=== PATIENT | female | born 1945 | race Caucasian/White ===

== ENCOUNTER → 2016-08-05 | Outpatient (CLI) | payer MEDICARE, OTHER ==
[~2016-08-05] MED LIST: ASPI1TAB69 PO; ASPI81 PO; DIGO0.12 PO; DIGO0.25 PO; HYDR-3533 PO; HYZA100T2 PO; LANO0.1212 PO; LEVO.05 PO; LORTA5 PO; LOSA50TA2 PO; MELO-1 PO; MELO15TA2 PO; MULT-135 PO; OXYC1TAB63 PO; TAB-TAB PO; UNIS25TA2 PO; VITA10003 PO
[2016-08-05 15:06] LABS: AUTOMATED NEUTROPHIL # 3.8 TH/MM3 (1.8-7.7); BASOPHIL % 0.6 % (0.0-2.0); EOSINOPHIL # 0.1 TH/MM3 (0-0.4); EOSINOPHIL % 2.4 % (0.0-4.0); HEMATOCRIT 37.1 % (35.0-46.0); HEMO FLAGS DIFF FINAL; LYMPH % 25.2 % (9.0-44.0); LYMPHOCYTE # 1.5 TH/MM3 (1.0-4.8); MEAN CELL VOLUME 84.2 FL (80.0-100.0); MEAN CORPUSCULAR HGB CONC 35.6 % (32.0-36.0); MONO % 8.9 % (0.0-8.0); NEUT % 62.9 % (16.0-70.0); PLATELET COUNT 195 TH/MM3 (150-450); RED CELL DISTRIBUTION WIDTH 13.2 % (11.6-17.2); WHITE BLOOD COUNT 6.1 TH/MM3 (4.0-11.0)
--- NOTE | 2016-08-05 15:10 | RADRPT ---
EXAM DATE/TIME: 08/05/2016 15:00 [place] COMPARISON: CHEST PA & LAT, February 04, 2013, 9:44. INDICATIONS : Evaluate for pneumonia, pneumothorax, or communicable disease. Pre op hysterectomy. MEDICAL HISTORY : None. SURGICAL HISTORY : None. ENCOUNTER: Initial ACUITY: 1 day PAIN SCORE: 0/10 LOCATION: Bilateral chest FINDINGS: PA and lateral views of the chest demonstrate the lungs to be symmetrically aerated without evidence of mass, infiltrate or effusion. The cardiomediastinal contours are unremarkable. Osseous structure s are intact. CONCLUSION: No acute disease. No significant change has occurred. Rodo Nj MD on August 05, 2016 at 15:08 Board Certified Radiologist. This report was verified electronically.
[2016-08-05 15:23] LABS: ALT (GPT) 28 U/L (10-53); ANION GAP 5 MEQ/L (5-15); APTT (PATIENT) 27.8 SEC (24.3-30.1); AST (GOT) 16 U/L (15-37); BICARBONATE 32.9 MEQ/L (21.0-32.0); BLOOD UREA NITROGEN 18 MG/DL (7-18); CHLORIDE 102 MEQ/L (98-107); GLOMERULAR FILTRATION RATE 62 ML/MIN (>89); GLUCOSE,FASTING 103 MG/DL (74-99); POTASSIUM 3.5 MEQ/L (3.5-5.1); PROTHROMBIN TIME - PATIENT 10.7 SEC (9.8-11.6); SODIUM (NA) 140 MEQ/L (136-145)
[2016-08-05 15:25] LABS: ALKALINE PHOSPHATASE 88 U/L (45-117); TOTAL BILIRUBIN ADULT 0.6 MG/DL (0.2-1.0)
== END ==
LOC: CPRE 13:45
PROVIDERS: ATTEND Obstetrics & Gynecology Gynecologic Oncology
DX: Z01.812 Encounter for preprocedural laboratory examination (principal); R19.09 Other intra-abdominal and pelvic swelling, mass and lump
CPT/HCPCS: 36415; 71020; 80053; 85025; 85610; 85730

== ENCOUNTER 2016-08-12 08:40 | Observation (INO) | payer MEDICARE, OTHER ==
[~2016-08-12] VITALS: Ht 160 cm; Wt 66.1 kg
[~2016-08-12 08:40] MED LIST changes: -ASPI81 PO; -DIGO0.25 PO; -HYDR-3533 PO; -HYZA100T2 PO; +LACTATED RINGER'S 1000 ML INJ 1,000 ML IV ONE; -LANO0.1212 PO; -LORTA5 PO; -MELO15TA2 PO; +NORMOSOL R INJ 2,000 ML IV ONE; -OXYC1TAB63 PO; +PHENYLEPH/NS 1000 MCG/10 ML SYR IV ONE; +PROPOFOL 200 MG/20 ML AMP IV ONE; -TAB-TAB PO
[2016-08-12] MEDS ORDERED: DO NOT ADM ANY ANTICOAGULANT DRUGS XX PRN (09:30)
[2016-08-12 09:43] VITALS: BP 127/82; PULSE 90; RESP 20; TEMP 97.8; O2SAT 100
[2016-08-12] MEDS ORDERED: HEPARIN SODIUM - SQ 10,000 UNITS/ML VIAL SQ SCH (09:45)
[2016-08-12] MEDS ORDERED: ceFAZolin 1,000 MG/NS 100 ML IV SCH ×2 (09:45)
[2016-08-12] MEDS ORDERED: SODIUM CHLORIDE FLUSH PRN IVF (09:45)
[2016-08-12] MEDS ORDERED: SCOPOLAMINE 1.5 MG PATCH ONE (11:44)
[2016-08-12] MEDS ORDERED: MIDAZOLAM HCL 2 MG/2 ML VIAL ONE (13:00)
[2016-08-12] MEDS ORDERED: FAMOTIDINE 20 MG/2 ML VIAL ONE (13:00)
[2016-08-12] MEDS ORDERED: ACETAMINOPHEN 1000 MG/100 ML VIAL IV ONE (13:01)
[2016-08-12] MEDS ORDERED: DEXAMETHASONE SOD PHOS 4 MG/ML VIAL ONE (13:01)
[2016-08-12] MEDS ORDERED: diphenhydrAMINE HCL 50 MG/ML VIAL ONE (13:02)
[2016-08-12] MEDS ORDERED: LIDOCAINE 1%/EPINEPHrine 1:100,000 SOLN 30 ML VIAL INFIL ONE (13:59)
[2016-08-12] MEDS ORDERED: ceFAZolin INJ 1,000 MG VIAL IV ONE (15:10)
[2016-08-12] MEDS ORDERED: SUGAMMADEX SODIUM 200 MG/2 ML VIAL IV PUSH ONE ×2 (15:41)
[2016-08-12] MEDS ORDERED: LORazepam 0.5 MG TAB PO PRN (16:15)
[2016-08-12] MEDS ORDERED: METOCLOPRAMIDE HCL 10 MG/2 ML VIAL IV PUSH PRN (16:15)
[2016-08-12] MEDS ORDERED: SODIUM CHLORIDE 0.9% FLUSH 5 ML FLUSH FLUSH PRN (16:15)
[2016-08-12] MEDS ORDERED: oxyCODONE/ACETAMINOPHEN 5 MG/325 MG TAB PO PRN ×2 (16:15)
[2016-08-12] MEDS ORDERED: DOXYLAMINE SUCCINATE 25 MG PO PRN (16:15)
[2016-08-12] MEDS ORDERED: fentaNYL CITRATE 250 MCG/5 ML AMP ONE ×2 (16:27)
[2016-08-12] MEDS: D5-1/2 NS + KCL 20 MEQ INJ 1,000 ML IV SCH (16:46)
[2016-08-12] MEDS ORDERED: *PROMETHAZINE 25 MG/ML VIAL PERIprocedural use ONLY ONE (17:02)
[2016-08-12] MEDS: KETOROLAC TROMETHAMINE 30 MG/ML (IVP) VIAL IVP SCH ×2 (17:31→22:47)
[2016-08-12 19:15] LABS: HEMATOCRIT 33.8 % (35.0-46.0); REVIEW FLAG FINAL
[2016-08-12 20:09] VITALS: BP 153/74; PULSE 93; RESP 19; TEMP 97.6; O2SAT 95
[2016-08-12 20:45] VITALS: O2SAT 96
[2016-08-12] MEDS ORDERED: NON-FORMULARY DRUG (Losartan-Hydrochlorothiazide 1 TAB) PO SCH (21:00)
[2016-08-12] MEDS: SODIUM CHLORIDE 0.9% FLUSH 5 ML FLUSH FLUSH SCH (21:00)
[2016-08-12] MEDS ORDERED: SODIUM CHLORIDE FLUSH BID IVF SCH (21:00)
[2016-08-12] MEDS ORDERED: LOSARTAN 50 MG TAB PO SCH (21:00)
[2016-08-12 21:05] LABS: MEAN CORPUSCULAR HGB CONC 36.5 % (32.0-36.0)
[2016-08-12] MEDS ORDERED: LORazepam 2 MG/ML VIAL IV SCH (22:30)
[2016-08-12] MEDS ORDERED: LORazepam 2 MG/ML VIAL IV PRN (22:30)
[2016-08-13 00:09] VITALS: BP 125/69; PULSE 73; RESP 17; TEMP 98.2; O2SAT 99
[2016-08-13 04:09] VITALS: BP 112/68; PULSE 77; RESP 17; TEMP 97.2; O2SAT 97
[2016-08-13] MEDS: D5-1/2 NS + KCL 20 MEQ INJ 1,000 ML IV SCH (04:57)
[2016-08-13] MEDS: KETOROLAC TROMETHAMINE 30 MG/ML (IVP) VIAL IVP SCH (04:57)
[2016-08-13] MEDS ORDERED: LEVOTHYROXINE SODIUM 50 MCG TAB PO SCH (06:00)
[2016-08-13 07:04] LABS: AUTOMATED NEUTROPHIL # 6.5 TH/MM3 (1.8-7.7); BASOPHIL % 0.1 % (0.0-2.0); HEMATOCRIT 30.6 % (35.0-46.0); LYMPH % 10.4 % (9.0-44.0); LYMPHOCYTE # 0.8 TH/MM3 (1.0-4.8); MEAN CELL VOLUME 82.8 FL (80.0-100.0); MEAN CORPUSCULAR HEMOGLOBIN 30.3 PG (27.0-34.0); NEUT % 81.5 % (16.0-70.0); PLATELET COUNT 158 TH/MM3 (150-450); RED CELL DISTRIBUTION WIDTH 12.9 % (11.6-17.2)
[2016-08-13 07:10] LABS: HEMO FLAGS AUTO DIFF
[2016-08-13] MEDS ORDERED: OXYC1TAB63 PO (07:19)
[2016-08-13 07:30] LABS: BICARBONATE 29.4 MEQ/L (21.0-32.0)
[2016-08-13 08:00] VITALS: BP 118/62; PULSE 67; RESP 16; TEMP 98.1; O2SAT 98
[2016-08-13] MEDS: SODIUM CHLORIDE 0.9% FLUSH 5 ML FLUSH FLUSH SCH (08:17)
[2016-08-13 08:25] LABS: SCAN/DIFF AUTO DIFF CONFIRMED
[2016-08-13] MEDS ORDERED: DIGOXIN 0.125 MG TAB PO SCH (09:00)
[2016-08-13] MEDS ORDERED: MELOXICAM 15 MG TAB PO SCH (09:00)
--- NOTE | 2016-08-13 16:58 | EKG ---
Date Performed: 08/12/2016 Time Performed: 10:47:40 PTAGE: 70 years EKG: Sinus rhythm Compared to prior tracing no significant change NORMAL ECG PREVIOUS TRACING : 11/21/2014 06.58 DOCTOR: Nay Acosta Interpretating Date/Time 08/13/2016 16:55:15
[2016-08-13] MEDS ORDERED: HYDROCHLOROTHIAZIDE 12.5 MG CAP PO SCH (21:00)
--- NOTE | 2016-08-20 22:51 | MP ---
cc: DHARMESH CRAIG KELLY L. MD TAPIA-SANTIAGO, CECILLE A. M.D. MARDEEPAKNARDA DATE OF SURGERY 08/12/2016 PREOPERATIVE DIAGNOSIS Complex pelvic mass. POSTOPERATIVE DIAGNOSIS Right ovarian cystadenofibroma PROCEDURE Robotic-assisted laparoscopic hysterectomy, bilateral salpingo-oophorectomy. 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 She was counseled regarding these findings and presents now for surgical management. FINDINGS The right ovary was replaced with a solid and cystic multilobular mass. Capsule was intact. Left tube and ovary grossly appeared normal. Uterus grossly appeared normal, sounded to approximately 8 cm. There was no adenopathy. No intraperitoneal implants, no other area suspicious for metastatic disease. Frozen section analysis of the right ovary showed it to be a benign cystadenofibroma. PROCEDURE IN DETAIL The patient taken to the operating room placed in dorsal lithotomy position. After general endotracheal anesthesia was administered time-out was undertaken, the patient was identified by sight recognition and hospital ID bracelet and the proposed procedure was reviewed and confirmed. She was carefully positioned in padded Lex stirrups. Her arms were padded and secured to the sides. She was further secured to the operating table with egg crate padding and tape in across chest over the shoulder fashion. All sites noted to be properly aligned with no malalignments or pressure points. She was prepped in sterile fashion, draped below the waist, placed in high lithotomy position, cervix grasped, dilated. Uterine cavity sounded and standard V-Care manipulator inserted and secured usual fashion. Valenzuela catheter placed in the bladder. She was returned to low lithotomy position. Change of sterile gloves was undertaken. We completed draping in anticipation of laparoscopy. Confirmed that an orogastric airway was in the stomach on suction. With manual elevation of the abdominal wall and direct laparoscopic visualization, 5 mm cannula placed in the left abdominal wall, atraumatic entry confirmed as carbon dioxide gas was insufflated. 12 mm cannula placed in the midline above the umbilicus, 8 mm cannula was placed in the right upper abdomen, and left lateral abdomen, 5 mm cannula exchanged for an 8-mm cannula. Peritoneal washings were obtained for cytology. She was placed in steep Trendelenburg position. Anatomy was reviewed with findings as described above. The robot robotic system brought into the operative field and docked in usual fashion. Monopolar scissors, fenestrated bipolar forceps and Prograsp manipulators placed in arms number 1, 2, and 3 respectively and I took my place at the surgeon's console. Right round ligament isolated, cauterized, transected. The anterior and posterior leafs of the broad ligament were opened. The right ureter was identified. The right infundibulopelvic ligament was isolated to the level of the pelvic brim. The intervening peritoneum was opened. The infundibulopelvic ligament was cauterized and transected. Dissection was continued sharply to isolate the right utero-ovarian ligament which was then cauterized and transected thereby removing the right ovarian mass and fallopian tube which were placed in the right pericolic gutter for later retrieval. Posterior peritoneum opened along the right side of the uterus and cervix. Right vesicouterine peritoneum dissected off the lower uterine segment and cervix. Right uterine vessels skeletonized, cauterized and transected as were the cardinal, paracervical and uterosacral ligaments. Attention was directed toward the left side. Left round ligament cauterized and transected. The anterior and posterior leafs of the broad ligament were opened. Left ureter was identified, left infundibulopelvic ligament was isolated. The intervening peritoneum was opened. The infundibulopelvic ligament was cauterized and transected. Posterior peritoneum opened along the left side of the uterus and cervix. Left vesicouterine peritoneum dissected off the lower uterine segment and cervix. Left uterine vessels were cauterized and transected as were the cardinal, paracervical and uterosacral ligaments. Colpotomy was performed following the cap of the V-Care manipulator. Specimen was withdrawn including the uterus, cervix, left tube and ovary and then a pneumo-occluder balloon was placed in the vagina to maintain pneumoperitoneum. EndoCatch bag 15 cm was introduced transvaginally. The right ovarian mass was brought down into the pelvis in a controlled fashion. The cystic component was drained externally and this allowed delivery of the remaining specimen, all intact within the bag. Instruments one and three exchanged for needle drivers after the Ray-Jose David sponges that had been placed in the pelvis were each removed and noted to be removed in their entirety and preliminary counts were correct. 0 Vicryl suture was introduced. Vaginal cuff was closed starting at the left corner. Full-thickness closure including the posterior peritoneum and edge of the uterosacral ligament tied via instrument tie. Running continuous tenuous closure was held on traction across the vaginal apex to the contralateral corner where it was similarly fixed, secured and tied and the needle was removed. Pelvis was thoroughly irrigated. Small bleeders rendered hemostatic with bipolar cautery. Pathology came back showing benign mass. It was felt that all reasonable surgical objectives had been completed in this patient. The robotic instruments were removed. Robotic system disengaged from the operative field. I reentered the bedside under sterile condition. The 12 mm fascial defect was closed with interrupted 0 Vicryl sutures using a needle pass fascia closure apparatus which rendered the fascia completely airtight and hemostatic. The remaining cannulas were withdrawn. Carbon dioxide gas was removed. 3-0 Vicryl subcutaneous. 3-0 Vicryl subcuticular were used to close the skin incisions. Preliminary and final counts were correct. She was placed in high lithotomy position. Pelvic exam confirmed the vaginal cuff well-supported, no vaginal lacerations. No remaining foreign objects in the vagina. She was returned to dorsal supine position and was pending reversal of anesthesia when I left the operating room to precede her to the Post Anesthesia Care Unit and to talk to family members who were waiting in the surgical waiting area. MD TOR Meade/ /7:48 AM /10:29 PM
--- NOTE | 2016-08-21 22:31 | MD ---
cc: SARIKA JOHNSON M.D., KELLY L. MD MARRESE, ROXY ADMISSION DATE: 08/12/2016 DISCHARGE DATE: 08/13/2016 PROCEDURE 08/12/2016 - Robotic-assisted laparoscopic hysterectomy, bilateral salpingo-oophorectomy (for resection of a 10-cm right ovarian mass). PRELIMINARY PATHOLOGY Benign cystadenofibroma of the right ovary. HOSPITAL COURSE She is doing satisfactorily in the early postop period, was notable for some nausea and emesis thought likely related to anesthesia medication and the nausea and pain control have improved throughout the night. She is feeling somewhat better this morning, has been able to at least keep some liquids down. Valenzuela catheter is removed pending voiding. No acute distress. In's and out's 3086/700+. LABS H&H this morning consistent with H&H yesterday afternoon, 11.2/30.6 (11.9/33.8 yesterday afternoon). White count 8.0, platelets 158,000. Electrolytes are pending at the time of this dictation. PHYSICAL EXAMINATION VITAL SIGNS: Afebrile, pulse 77, respirations 17, blood pressure 112/68, O2 saturations greater than or equal to 97% while awake. LUNGS: Clear except for mild rales at the bases. CARDIOVASCULAR: Regular rate and rhythm. ABDOMEN: Soft. Incisions clean and dry. Small ecchymosis or hematoma at the left lateral incision, stable, unchanged overnight. TIRE CHANGER: No bleeding. EXTREMITIES: Nontender. ASSESSMENT Postop day #1. Findings at the time of surgery, preliminary pathology reviewed. Activities, restrictions discussed. Questions were asked and answered. She expressed good understanding. PLAN Anticipate that as the day progresses she will feel better and meet criteria for discharge to home and therefore anticipate discharge to home. Our office number is provided such that she is to call our office to schedule followup in two weeks. She is to resume prior medication. She states that she can take Percocet without adverse effect even though she states a sensitivity to morphine. She has no known problem with tolerance of Percocet and this medication is provided. She also knows she can take rdrc-goa-speotvo medication as needed. She is to contact our office if she has any problems or questions between now and the time of scheduled followup. MD KATHARINA Meade /7:23 AM /10:23 PM
== END 2016-08-13 11:21 | disposition home or self-care (01) ==
LOC: HSDC 08:40 → HSDI 16:09 → HOCB 19:35
PROVIDERS: ADMIT Obstetrics & Gynecology Gynecologic Oncology; ATTEND Obstetrics & Gynecology Gynecologic Oncology
DX: D27.0 Benign neoplasm of right ovary (principal); D25.9 Leiomyoma of uterus, unspecified; N83.8 Other noninflammatory disorders of ovary, fallopian tube and broad ligament; N72 Inflammatory disease of cervix uteri; I47.1 Supraventricular tachycardia; I10 Essential (primary) hypertension
CPT/HCPCS: 00840; 58552; 80048; 85014; 85018; 85025; 86850; 86900; 86901; 88112; 88305; 88307; 88311; 88331; 93005; G0378; J0131; J0690; J1100; J1644; J1885; J2250; J2370; J2550; J2765; J3010; J3480; J7120; J1200